=== PATIENT | female | born 1980 | race Caucasian/White ===

== ENCOUNTER 2018-01-20 18:14 | Emergency (ER) | payer SELFPAY ==
[2018-01-20 18:31] VITALS: RESP 18
--- NOTE | 2018-01-20 20:01 | ED PDOC ---
HPI: Female Pain Time Seen by Provider: 01/20/18 19:16 Chief Complaint (Nursing): Female Genitourinary History Per: Patient, [employer]ot [employer] Person (Get Slot Key Person: [id number]) History/Exam Limitations: no limitations Onset/Duration Of Symptoms: Days Current Symptoms Are (Timing): Still Present Associated Symptoms: denies: Fever, Chills, Nausea, Vomiting, Diarrhea Additional Complaint(s): No PMHx presenting with lower abdominal pain and vaginal discharge. States it started 3 days ago with white/bloody vaginal discharge with foul odor and started having LLQ pain. States pain has been constant since then and today had discharge that was non-bloody but white and foul smelling. Denies fever, nausea, vomiting, abnormal stools, urinary symptoms. Sexually active only with . PMD: [facility] Past Medical History Reviewed: Historical Data, Nursing Documentation, Vital Signs Vital Signs: Last Vital Signs Temp 98.8 F 01/20/18 18:27 Pulse 73 01/20/18 18:27 Resp 18 01/20/18 18:27 BP 116/73 01/20/18 18:27 Pulse Ox 99 01/20/18 18:27 - Medical History PMH: No Chronic Diseases Denies: Back Problems - Family History Family History: States: Unknown Family Hx - Home Medications Home Medications: Ambulatory Orders Medication Instructions Recorded Cyclobenzaprine [Cyclobenzaprine 10 mg PO Q8 PRN #12 tab 09/25/15 HCl] Docusate [Colace] 100 mg PO BID #20 cap 09/25/15 Ibuprofen [Motrin] 600 mg PO TID PRN #30 tab 09/25/15 Polyethylene Glycol 3350 [Miralax] 17 gm PO DAILY #10 packet 09/25/15 metroNIDAZOLE [Flagyl] 500 mg PO BID #14 tab 09/25/15 metroNIDAZOLE [Flagyl] 500 mg PO BID 7 Days tab 01/20/18 - Allergies Allergies/Adverse Reactions: Allergies Allergy/AdvReac Type Severity Reaction Status Date / Time No Known Allergies Allergy Verified 09/25/15 10:12 Review of Systems ROS Statement: Except As Marked, All Systems Reviewed And Found Negative Gastrointestinal: Positive for: Abdominal Pain Genitourinary Female: Positive for: Vaginal Discharge Physical Exam - Reviewed Nursing Documentation Reviewed: Yes Vital Signs Reviewed: Yes - Physical Exam Appears: Positive for: Well, Non-toxic, No Acute Distress Head Exam: Positive for: ATRAUMATIC, NORMAL INSPECTION, NORMOCEPHALIC Skin: Positive for: Normal Color, Warm, DRY Eye Exam: Positive for: EOMI, Normal appearance, PERRL ENT: Positive for: Normal ENT Inspection Neck: Positive for: Normal, Painless ROM Cardiovascular/Chest: Positive for: Regular Rate, Rhythm Respiratory: Positive for: CNT, Normal Breath Sounds Gastrointestinal/Abdominal: Positive for: Normal Exam, Soft, Tenderness (Mild LLQ tenderness). Negative for: Organomegaly, Mass, Distended, Guarding Pelvic Exam: Positive for: Bimanual Exam Normal, No Cerv. Motion Tender, No Masses, Discharge (Whitish-mucoid), Other ([employer] EDT Diandra). Negative for : Tender W/Cervical Motion, Tender Adnexa, Tender Uterus Back: Positive for: Normal Inspection Extremity: Positive for: Normal ROM Neurologic/Psych: Positive for: Alert, Oriented - ECG O2 Sat by Pulse Oximetry: 99 Pulse Ox Interpretation: Normal Medical Decision Making Medical Decision MakinPM Patient presenting with VD, itchiness, and abd pain -very well appearing, normal vitals, discharge seen on exam, but non tender uterus/adnexa -BV v. non-specific cervicitis, will check sono to r/o ovarian pathology 10:30PM CT Abdomen/Pelvis FINDINGS: Uterus/cervix: The uterus is anteverted measuring 10.1 cm 3.9 cm x 5.7 cm in transabdominal dimension. Normal uterine echogenicity. No discrete mass. Small nabothian cysts are present within the cervix. Homogeneous appearance of the endometrial stripe, which measures 1.7 cm in thickness. Right ovary: The right ovary is normal in size and echotexture measuring 2.7 cm x 1.9 cm in 2.7 cm. Small peripheral follicles are present within this ovary. Normal color Doppler flow and spectral Doppler waveform within the right ovary. Left ovary: The left ovary is normal in size and echotexture measuring 3.3 cm x 2.7 cm IT 0.5 cm. A simple cyst or dominant follicle is present within this ovary measuring 2.8 cm x 2.0 cm x 1.9 cm. Normal color Doppler flow and spectral Doppler waveform are demonstrated within this ovary. Free fluid: No free fluid is present within the pelvis. Bladder: Normal appearance of the imaged urinary bladder and transabdominal imaging. IMPRESSION: 1. Thickened appearance of the endometrial stripe, which measures 1.7 cm, at the upper limit of normal. Correlate with phase of menstruation and consider short interval follow- up imaging if clinically indicated. 2. Normal appearance of both ovaries. No ovarian torsion. US Pelvis/Transvaginal FINDINGS: Uterus/cervix: The uterus is anteverted measuring 10.1 cm 3.9 cm x 5.7 cm in transabdominal dimension. Normal uterine echogenicity. No discrete mass. Small nabothian cysts are present within the cervix. Homogeneous appearance of the endometrial stripe, which measures 1.7 cm in thickness. Right ovary: The right ovary is normal in size and echotexture measuring 2.7 cm x 1.9 cm in 2.7 cm. Small peripheral follicles are present within this ovary. Normal color Doppler flow and spectral Doppler waveform within the right ovary. Left ovary: The left ovary is normal in size and echotexture measuring 3.3 cm x 2.7 cm IT 0.5 cm. A simple cyst or dominant follicle is present within this ovary measuring 2.8 cm x 2.0 cm x 1.9 cm. Normal color Doppler flow and spectral Doppler waveform are demonstrated within this ovary. Free fluid: No free fluid is present within the pelvis. Bladder: Normal appearance of the imaged urinary bladder and transabdominal imaging. IMPRESSION: 1. Thickened appearance of the endometrial stripe, which measures 1.7 cm, at the upper limit of normal. Correlate with phase of menstruation and consider short interval follow- up imaging if clinically indicated. 2. Normal appearance of both ovaries. No ovarian torsion. 1045PM Patient well appeairng, explained results. Likely patient has BV. Will treat with flagyl, advised to abstain from alcohol while on ABx. [employer] Sl[employer] Key Person was used (ID: [id number]). Advised patient of findings on sono and advised followup with [facility] next week. Disposition - Clinical Impression Clinical Impression: Bacterial vaginosis - Patient ED Disposition Is Patient to be Admitted: No - Disposition Referrals: Padmini Sabillon [Family Provider] - Disposition: Routine/Home Disposition Time: 22:50 Condition: GOOD Prescriptions: metroNIDAZOLE [Flagyl] 500 mg PO BID 7 Days tab Instructions: Bacterial Vaginosis Forms: [employer] (Argentine) Print Language: ESTONIAN
[2018-01-20 23:55] VITALS: BP 121/75; PULSE 78; TEMP 98.5; O2SAT 100
--- NOTE | 2018-01-21 12:24 | US ---
Date of service: 01/20/2018 HISTORY: Left lower quadrant pain, vaginal discharge. LMP 01/01/2018 COMPARISON: 09/12/2013 TECHNIQUE: The gallbladder is not well visualized, perhaps surgically absent or contracted. FINDINGS: UTERUS: Measures 3.9 x 5.7 x 10.3 cm. Normal in size and appearance. No fibroid or other mass lesion seen. ENDOMETRIUM: Measures 16.6 mm in diameter. Endometrial hypertrophy without focal abnormality. CERVIX: No cervical abnormality identified.Incidental finding: Nabothian cysts the largest measures 9 mm RIGHT OVARY: Measures 1.5 x 2.7 x 2.7 cm. No solid mass. Normal flow. Multiple subcentimeter follicles. LEFT OVARY: Measures 2.5 x 2.7 x 3.3 cm. No solid mass. Normal flow. 1 simple cyst 1.9 x 2 x 2.8 cm. FREE FLUID: No significant free fluid noted. OTHER FINDINGS: None. IMPRESSION: Endometrial hypertrophy without focal abnormality. Additional benign and/or incidental findings described above. Concordant results (preliminary interpretation) provided by [facility]. Procedure Completed: 21:18 Preliminary ([facility]) Report: Dictated and Authenticated: 22:32. Final Interpretation: 12:22. January 21, 2018.
== END 2018-01-20 23:40 | disposition home or self-care (01) ==
LOC: H.ER 18:14
DX: N76.0 Acute vaginitis (principal); B96.89 Other specified bacterial agents as the cause of diseases classified elsewhere

== ENCOUNTER 2018-09-27 20:31 | Emergency (ER) | payer SELFPAY ==
--- NOTE | 2018-09-27 21:15 | ED PDOC ---
HPI: General Adult Time Seen by Provider: 09/27/18 20:47 Chief Complaint (Nursing): ENT Problem Chief Complaint (Provider): ENT Problem History Per: Patient History/Exam Limitations: no limitations Onset/Duration Of Symptoms: Days (x 2) Current Symptoms Are (Timing): Still Present Additional Complaint(s): 38 year old female with no significant medical history presents to the ED with throat and chest pain, onset yesterday afternoon. Patient reports that she was eating chicken yesterday and accidentally swallowed the bone. Since then, she feels as though it is stuck in the left side of her throat. She also reports intermittent chest pain when eating. Patient is eating and drinking normally. Denies difficulty breathing, difficulty swallowing, vomiting or other com plaints. PMD: [facility] Past Medical History Reviewed: Historical Data Vital Signs: Last Vital Signs Temp 98.5 F 09/27/18 20:38 Pulse 71 09/27/18 20:38 Resp 16 09/27/18 20:38 BP 110/68 09/27/18 20:38 Pulse Ox 98 09/27/18 20:38 Primary Care Provider: Jonah Robles - Medical History PMH: Denies: Back Problems - Surgical History Surgical History: No Surg Hx - Family History Family History: States: Unknown Family Hx - Home Medications Home Medications: Ambulatory Orders Medication Instructions Recorded Cyclobenzaprine [Cyclobenzaprine 10 mg PO Q8 PRN #12 tab 09/25/15 HCl] Docusate [Colace] 100 mg PO BID #20 cap 09/25/15 Ibuprofen [Motrin] 600 mg PO TID PRN #30 tab 09/25/15 Polyethylene Glycol 3350 [Miralax] 17 gm PO DAILY #10 packet 09/25/15 metroNIDAZOLE [Flagyl] 500 mg PO BID #14 tab 09/25/15 metroNIDAZOLE [Flagyl] 500 mg PO BID 7 Days tab 01/20/18 Sucralfate [Carafate] 1 gm PO TID #30 oral.susp 09/27/18 - Allergies Allergies/Adverse Reactions: Allergies Allergy/AdvReac Type Severity Reaction Status Date / Time No Known Allergies Allergy Verified 09/25/15 10:12 Review of Systems ROS Statement: Except As Marked, All Systems Reviewed And Found Negative ENT: Positive for: Other (foreign body sensation in left side of throat) Cardiovascular: Positive for: Chest Pain (intermittent; when she eats) Respiratory: Negative for: Shortness of Breath Physical Exam - Reviewed Nursing Documentation Reviewed: Yes Vital Signs Reviewed: Yes - Physical Exam Appears: Positive for: Non-toxic, No Acute Distress Head Exam: Positive for: ATRAUMATIC, NORMAL INSPECTION, NORMOCEPHALIC Skin: Positive for: Normal Color, Warm, Dry Eye Exam: Positive for: EOMI, Normal appearance, PERRL ENT: Positive for: Normal ENT Inspection Neck: Positive for: Normal, Painless ROM, Supple Cardiovascular/Chest: Positive for: Regular Rate, Rhythm. Negative for: Murmur Respiratory: Positive for: Normal Breath Sounds. Negative for: Respiratory Distress Gastrointestinal/Abdominal: Positive for: Normal Exam, Soft. Negative for: Tenderness Back: Positive for: Normal Inspection. Negative for: L CVA Tenderness, R CVA Tenderness Extremity: Positive for: Normal ROM (x 4). Negative for: Deformity Neurological/Psych: Positive for: Awake, Alert, Normal Tone, Oriented (x 3). Negative for: Motor/Sensory Deficits - ECG O2 Sat by Pulse Oximetry: 98 (RA) Pulse Ox Interpretation: Normal - Progress Re-evaluation Time: 23:07 Condition: Re-examined, Improved Medical Decision Making Medical Decision Makin:08 Impression: throat and chest pain Differential diagnoses include but are not limited to: possible foreign body in pharynx, less likely esophagus, esophagitis Initial Plan: --CT neck soft tissue --CXR 22:08 CT FINDINGS: PHARYNX: Unremarkable appearance of the nasopharynx, oropharyx, and hypopharynx. No pharyngeal mucosal based mass lesions. No radiopaque foreign body is detected. LARYNX: The larynx is unremarkable. The epiglottis appears normal. RETROPHARYNGEAL SPACE: The retropharyngeal soft tissues appear within normal limits. SALIVARY GLANDS: Unremarkable appearance of the parotid, submandibular, and sublingual glands. LYMPH NODES: No significant lymphadenopathy. THYROID: Unremarkable appearance of the thyroid. No thyroid nodule seen. BONES: No acute osseous abnormality. No aggressive appearing osseous lesion. IMPRESSION: No radiopaque foreign body is detected. Unremarkable CT neck with IV contrast. Scribe Attestation: Documented by Heena Estrada, acting as a scribe for Mariposa Gamez MD. Provider Scribe Attestation: All medical record entries made by the Scribe were at my direction and personally dictated by me. I have reviewed the chart and agree that the record accurately reflects my personal performance of the history, physical exam, medical decision making, and the department course for this patient. I have also personally directed, reviewed, and agree with the discharge instructions and disposition. Disposition - Clinical Impression Clinical Impression: Throat pain, Foreign body in throat - Patient ED Disposition Is Patient to be Admitted: No Doctor Will See Patient In The: Office Counseled Patient/Family Regarding: Studies Performed, Diagnosis, Need For Followup - Disposition Referrals: [facility] [Outside] Disposition: Routine/Home Disposition Time: 23:08 Condition: GOOD Additional Instructions: BERTO HERNANDEZ, thank you for letting us take care of you today. Your provider was Mariposa Gamez MD and you were treated for THROAT PAIN. The emergency medical care you received today was directed at your acute symptoms. If you were prescribed any medication, please fill it and take as directed. It may take several days for your symptoms to resolve. Return to the Emergency Department if your symptoms worsen, do not improve, or if you have any other problems. Please contact your doctor or call one of the physicians/clinics you have been referred to that are listed on the Patient Visit Information form that is included in your discharge packet. Bring any paperwork you were given at discharge with you along with any medications you are taking to your follow up visit. Our treatment cannot replace ongoing medical care by a primary care provider outside of the emergency department. Thank you for allowing the [facility] team to be part of your care today. If you had an X-Ray or CT scan: A Radiologist will review the ED reading if any change in treatment is needed we will contact you. Prescriptions: Sucralfate [Carafate] 1 gm PO TID #30 oral.susp Instructions: Foreign Body, Swallowed, Adult Print Language: PANAMANIAN
[2018-09-27 23:33] VITALS: BP 98/71; PULSE 66; RESP 18; TEMP 97.8; O2SAT 99
--- NOTE | 2018-09-28 10:25 | RAD ---
Date of service: 09/27/2018 HISTORY: chest pain COMPARISON: 04/18/2013 and 04/11/2008 TECHNIQUE: Chest PA and lateral views FINDINGS: LUNGS: No consolidation. Symmetrical level and sized rounded nodular opacities likely relate to prominent nipple shadows not appreciated as such on prior studies. PLEURA: No significant pleural effusion identified. No pneumothorax apparent. CARDIOVASCULAR: No aortic atherosclerotic calcification present. Normal cardiac size. No pulmonary vascular congestion. OSSEOUS STRUCTURES: No significant abnormalities. VISUALIZED UPPER ABDOMEN: Normal. OTHER FINDINGS: None. IMPRESSION: Interval increase conspicuity of inferred prominent bilateral nipple shadows. Otherwise no interval changes noted.
--- NOTE | 2018-09-28 11:04 | CT ---
Date of service: 09/27/2018 PROCEDURE: CT NECK WITHOUT CONTRAST HISTORY: possibel foreign body chicken bone COMPARISON: None available. TECHNIQUE: CT of the neck without intravenous contrast. Coronal and sagittal reformats generated. Radiation dose: Total exam DLP = 313.58 mGy-cm. This CT exam was performed using one or more of the following dose reduction techniques: Automated exposure control, adjustment of the mA and/or kV according to patient size, and/or use of iterative reconstruction technique. FINDINGS: NASOPHARYNX: Unremarkable. SUPRAHYOID NECK: Unremarkable oropharynx, oral cavity, parapharyngeal space and retropharyngeal space. INFRAHYOID NECK: Unremarkable larynx, hypopharynx, and supraglottic space. Vocal cords intact. MASS: None. GLANDS: Parotid and submandibular glands unremarkable. Normal size thyroid gland, without nodule. LYMPH NODES: Multiple small, less than 1 cm lymph nodes bilaterally the preponderance of which are in levels 1B and 2 B. CERVICAL SPINE: No fracture or focal lesion. OTHER FINDINGS: None. IMPRESSION: Unremarkable non-contrast enhanced CT of the neck. No visualized radiopaque foreign body. Concordant results (preliminary interpretation) provided by [facility]. Procedure Completed: :24 Preliminary Report: Interpreted and electronically signed: 22:07. Final Interpretation: 11:00. September 28, 2018.
== END 2018-09-27 23:32 | disposition home or self-care (01) ==
LOC: H.ER 20:31
DX: J02.9 Acute pharyngitis, unspecified (principal); T17.208A Unspecified foreign body in pharynx causing other injury, initial encounter